=== PATIENT | female | born 1990 | race African-American/Black ===

== ENCOUNTER → 2017-03-31 | Outpatient (CLI) | payer BC ==
[~2017-03-31] MED LIST: ATIVAN 0.50.5 MG/TAB PO; NO HOME MEDICATIONS; NORCO 325 MG-51 TAB PO
[2017-03-31 12:00] LABS: HEMATOCRIT 39.1 % (37.0-47.0); HEMOGLOBIN 12.6 g/dl (12.5-16.0); MEAN CELL VOLUME 85 fl (80.0-100.0); MEAN CORPUSCULAR HEMOGLOBIN 27 pg (27.0-31.0); MEAN CORPUSCULAR HGB CONC 32 g/dl (33.0-37.0); MEAN PLATELET VOLUME 10.1 fl (7.4-10.4); PLATELET COUNT 273 K/mm3 (130-400); RED BLOOD COUNT 4.61 M/mm3 (4.10-5.30); REDCELL DISTRIBUTION WIDTH-CV 13.2 % (11.5-14.5); WHITE BLOOD COUNT 5.6 K/mm3 (4.8-10.8)
[2017-03-31 12:02] LABS: ANION GAP 12 mmol/L (7-16); BLOOD UREA NITROGEN 9 mg/dL (7-17); CALCIUM 9.4 mg/dL (8.4-10.2); CARBON DIOXIDE 27 mmol/L (22-30); CHLORIDE 100 mmol/L (98-107); CREATININE, serum 0.71 mg/dL (0.52-1.25); GLUCOSE 84 mg/dL (74-106); POTASSIUM 4.1 mmol/L (3.4-5.0); SODIUM 139 mmol/L (137-145)
[2017-03-31 12:15] LABS: B-TYPE NATRIURETIC PEPTIDE 88 pg/mL (0-125)
[2017-03-31 12:20] LABS: TROPONIN-I < 0.012 ng/mL (0.000-0.034)
== END ==
LOC: COL.LAB 10:51
PROVIDERS: Internal Medicine Interventional Cardiology
DX: R07.9 Chest pain, unspecified (principal)

== ENCOUNTER 2018-07-10 11:35 | Emergency (ER) | payer BC ==
[~2018-07-10] VITALS: Ht 154.9 cm; Wt 74.1 kg
[2018-07-10 11:40] VITALS: TEMP 99.6
[2018-07-10 12:22] LABS: BASO % 0.3 % (0.0-2.0); EOS % 0.4 % (0-4.0); GRAN # 7.8 (1.4-6.5); GRAN % 74.9 % (42.2-75.2); HEMOGLOBIN 12.2 g/dl (12.5-16.0); LYMPH % 18.6 % (20.0-51.0); MEAN CELL VOLUME 82 fl (80.0-100.0); MEAN CORPUSCULAR HEMOGLOBIN 27 pg (27.0-31.0); MEAN CORPUSCULAR HGB CONC 33 g/dl (33.0-37.0); MEAN PLATELET VOLUME 9.3 fl (7.4-10.4); MONO # 0.6 (0.1-0.6); MONO % 5.5 % (1.7-9.3); PLATELET COUNT 297 K/mm3 (130-400); RED BLOOD COUNT 4.51 M/mm3 (4.10-5.30); REDCELL DISTRIBUTION WIDTH-CV 13.4 % (11.5-14.5)
[2018-07-10 12:27] LABS: HEMATOCRIT 36.8 % (37.0-47.0)
[2018-07-10 12:28] LABS: COLLECTION METHOD CLEAN CATCH
[2018-07-10 12:31] LABS: ALBUMIN 3.9 gm/dL (3.5-5.0); BILIRUBIN,TOTAL 0.5 mg/dL (0.0-1.0); CALCIUM 9.2 mg/dL (8.4-10.2); CREATININE, serum 0.69 mg/dL (0.52-1.25); POTASSIUM 3.5 mmol/L (3.4-5.0); TOTAL PROTEIN 7.3 gm/dL (6.4-8.2)
[2018-07-10 12:51] LABS: MUCOUS Present /lpf; PH 5 (5-8); SQUAMOUS EPITHELIAL 20-50 /hpf; URINE APPEARANCE Hazy; URINE BACTERIA None Seen /hpf; URINE BILIRUBIN Negative (NEGATIVE); URINE BLOOD Negative (NEGATIVE); URINE COLOR Yellow; URINE GLUCOSE Negative (NEGATIVE); URINE KETONE Negative (NEGATIVE); URINE LEUKOCYTE ESTERASE 1+ (NEGATIVE); URINE NITRATE Negative (NEGATIVE); URINE PROTEIN(semi-quant) Negative (NEGATIVE); URINE UROBILINOGEN Negative (NEGATIVE)
[2018-07-10] MEDS ORDERED: CEPHALEXIN500 M1 PO (13:04)
[2018-07-10 13:23] VITALS: BP 104/67; PULSE 68
== END 2018-07-10 13:24 | disposition home or self-care (01) ==
LOC: COL.ER 11:35
PROVIDERS: Nurse Practitioner Primary Care
DX: O23.41 Unspecified infection of urinary tract in pregnancy, first trimester (principal); Z3A.08 8 weeks gestation of pregnancy

== ENCOUNTER 2018-10-14 03:17 | Emergency (ER) | payer OTHER ==
[~2018-10-14] VITALS: Ht 154.9 cm; Wt 77.3 kg
[~2018-10-14 03:17] MED LIST changes: +CEPHALEXIN500 M1 PO
[2018-10-14 03:22] VITALS: BP 110/64; PULSE 88; TEMP 98.3
[2018-10-14] MEDS ORDERED: PRENATAL-U1 CAP PO (03:29)
== END 2018-10-14 04:21 | disposition home or self-care (01) ==
LOC: COL.ER 03:17
DX: T23.261A Burn of second degree of back of right hand, initial encounter (principal); X12.XXXA Contact with other hot fluids, initial encounter; Y92.59 Other trade areas as the place of occurrence of the external cause